=== PATIENT | female | born 1970 | race Caucasian/White ===

== ENCOUNTER → 2017-10-13 | Outpatient (CLI) | payer BC ==
--- NOTE | 2017-10-13 15:34 | RADIOLOGY IMAGING REPORT ---
FACILITY: [facility] PATIENT NAME: Zhanna Reynolds : 1970 MR: [id number] V: [id number] EXAM DATE: ORDERING PHYSICIAN: LEVI GALO TECHNOLOGIST: Location: [facility] Patient: Zhanna Reynlods : 1970 Visit/Account:[id number] Date of Sevice: 10/13/2017 Exam type: FOOT 3 VIEW RIGHT History: Right foot pain, no known trauma Comparison: None. Findings: There is no evidence of acute fracture dislocation or significant arthritic change involving the righ t foot. No radiopaque soft tissue foreign body is seen. IMPRESSION: 1. No osteoarticular abnormality of the right foot is seen Report Dictated By: Carmen Gan MD at 10/13/2017 3:30 PM Report E-Signed By: Carmen Gan MD at 10/13/2017 3:31 PM WSN:[email or web address]
== END ==
LOC: RAD 14:46
PROVIDERS: ATTEND Nurse Practitioner Family
DX: M79.671 Pain in right foot (principal)